=== PATIENT | male | born 1960 | race Caucasian/White ===

== ENCOUNTER 2018-12-22 12:32 | Day surgery (SDC) | payer OTHER ==
[~2018-12-22] VITALS: Ht 170.2 cm; Wt 77.8 kg
[~2018-12-22 12:32] MED LIST: ASPI-535 PO; CHOLESTEROL MED PO; [UNRECOGNIZED DRUG - OTHER] PO
[2018-12-22] MEDS ORDERED: VITAMIN (13:10)
[2018-12-22] MEDS ORDERED: [UNRECOGNIZED DRUG - REMARK] (13:10)
[2018-12-22] MEDS ORDERED: ATORVASTATIN (13:10)
[2018-12-22 13:17] VITALS: Ht 170.2 cm; Wt 77.8 kg
[2018-12-22 13:49] VITALS: BP 113/75; PULSE 64; RESP 18
[2018-12-22] MEDS ORDERED: MIDAZOLAM 1 MG/ML 2 ML INJ ONE ×2 (14:22)
[2018-12-22] MEDS ORDERED: FENTAnyl 50 MCG/ML VIAL ONE (14:22)
[2018-12-22 14:41] VITALS: BP 122/74; PULSE 60; RESP 16
--- NOTE | 2018-12-22 16:40 | CONS ---
DATE OF ADMISSION: 12/22/2018 DATE OF CONSULTATION: PATIENT NAME: ALL MARQUEZ TYPE OF CONSULTATION: Preoperative gastroenterology. Dear Dr. Martin: I thank you very much for this kind referral. HISTORY OF PRESENT ILLNESS: Mr. All Marquez is a 58-year-old male patient who has been referred to me for further evaluation of change in the bowel habit. The patient has history of colon polyps. Hi s appetite has been good and he is not losing any weight. No upper abdominal pain. The patient is o n baby aspirin a day. No history of gallstones or liver disease. Not a hypertensive or diabetic. N o heart disease, lung problem or kidney disease. PAST MEDICAL HISTORY: The patient has got hyperlipidemia. He is status post radiation therapy for p rostate cancer. He is status post ventral hernia surgery. SOCIAL HISTORY: Nonsmoker. No alcohol abuse. FAMILY HISTORY: No family history of gastrointestinal tract neoplasm. ALLERGIES: NO DRUG ALLERGIES. MEDICATIONS: 1. Atorvastatin. 2. Aspirin 81 mg. PHYSICAL EXAMINATION: VITAL SIGNS: He is 5 feet, 7 inches tall and weighs 174 pounds. HEART: Normal heart sounds. LUNGS: Clear. ABDOMEN: Soft. No masses. Normal bowel sounds. NEUROLOGIC: Normal. IMPRESSION: 1. Change in the bowel habit. 2. History of colon polyp. 3. Hyperlipidemia. 4. Status post radiation therapy for prostate cancer. 5. Status post ventral hernia surgery. 6. The patient is on baby aspirin a day. PLAN: Colonoscopy for further evaluation. The procedure and possible complications are well explained to the patient. He understands and conse nts to the procedure. I thank you once again. With warmest personal regards, Dictated By: MARIA RAO/DIANA Conf#: [id number] DID#: [id number]
== END 2018-12-22 14:47 | disposition home or self-care (01) ==
LOC: GIL 12:32
PROVIDERS: ATTEND Internal Medicine Gastroenterology
DX: R19.4 Change in bowel habit (principal); K64.8 Other hemorrhoids; Z86.010 Personal history of colon polyps
CPT/HCPCS: 45378; J2250; J3010; Z7610